=== PATIENT | female | born 2000 | race African-American/Black ===

== ENCOUNTER 2021-02-23 10:10 | Emergency (ER) | payer OTHER ==
--- NOTE | 2021-02-23 11:08 | ED Physician Documentation ---
History of Present Illness - Stated complaint Stated Complaint: FEMALE - Chief complaint Chief Complaint: General - History obtained from History obtained from: Patient - Additonal information Additional information: Patient comes emergency department chief complaint of early period and low abdominal cramping. Patient states that she had her initial menses this month on February 04 and this lasted about a week, as is customary for the patient. Patient states that today, she began having vaginal bleeding again, and that it is like a regular period. Patient states that she has not had any fevers or chills. No nausea or vomiting. She states she does not think that she could be , but has not taken a test. She does not currently use any control. Patient denies any medical problems. She states she is otherwise healthy. She does note that she has been traveling recently, including not getting enough sleep and being under stress. No dysuria. No vaginal discharge. No other complaints at this time. Review of Systems Ten Systems: 10 systems reviewed and negative Constitutional: reports: Reviewed and negative Eyes: reports: Reviewed and negative Ears: reports: Reviewed and negative Nose: reports: Reviewed and negative Throat: reports: Reviewed and negative Cardiac: reports: Reviewed and negative Respiratory: reports: Reviewed and negative GI: reports: Reviewed and negative : reports: Vaginal bleeding, Irregular menses Skin: reports: Reviewed and negative Musculoskeletal: reports: Reviewed and negative Neurologic: reports: Reviewed and negative Psychiatric: reports: Reviewed and negative Endocrine: reports: Reviewed and negative Immunocompromised: reports: Reviewed and negative PD PAST MEDICAL HISTORY - Allergies Allergies/Adverse Reactions: Allergies Allergy/AdvReac Type Severity Reaction Status Date / Time No Known Drug Allergies Allergy Verified 02/23/21 10:27 PD ED PE NORMAL - Vitals Vital signs reviewed: Yes - General General: Alert and oriented X 3, No acute distress, Well developed/nourished - HEENT HEENT: Atraumatic, PERRL, EOMI, Moist mucous membranes - Neck Neck: Supple, no meningeal sign - Cardiac Cardiac: RRR, No murmur, Strong equal pulses - Respiratory Respiratory: No respiratory distress, Clear bilaterally - Abdomen Abdomen: Soft, Non tender, Non distended - Derm Derm: Normal color, Warm and dry, No rash - Extremities Extremities: No deformity, No edema - Neuro Neuro: Alert and oriented X 3, band tier 2-12 intact, Normal speech - Psych Psych: Normal mood, Normal affect Results - Vitals Vitals: Oxygen O2 Source Room air - Labs Labs: Laboratory Tests 02/23/21 11:26 Urine HCG, Qual NEGATIVE PD MEDICAL DECISION MAKING - ED course Complexity details: reviewed results, re-evaluated patient, considered differential, d/w patient ED course: Patient was worked up with a test, which not surprisingly, was negative. We have discussed the need for TOOL GRINDER OPERATOR EXTERNAL follow-up if irregular periods become ongoing, but that this will likely resolve on its own. Departure - Departure Disposition: 01 Home, Self Care Clinical Impression: Dysfunctional uterine bleeding Condition: Stable Instructions: ED Bleed Irregular Vaginal Comments: At this point in time, a single irregular period is not necessarily worrisome, as this is something that will happen to most women at least a few times during their menstrual years. You do not have other symptoms to raise concern for more serious process going on at this time. Usually, a menstrual cycle that is shorter or longer than normal is due to an imbalance in the many female hormones that contribute to the menstrual cycle. Generally, this hormone balance will correct itself After a cycle or 2 and he will go back to normal periods. If you continue to have irregular menstrual cycles for more than a few cycles, you should follow-up with your [employer] rep to discuss whether further testing or treatment should be done. Forms: Activity restrictions Discharge Date/Time: 02/23/21 11:35
[2021-02-23 11:35] VITALS: BP 112/62
[2021-02-23 11:52] LABS: HCG UR QUAL NEGATIVE
== END 2021-02-23 11:35 | disposition home or self-care (01) ==
LOC: ED 10:10
DX: N93.8 Other specified abnormal uterine and vaginal bleeding (principal)
CPT/HCPCS: 81025; 99282; 99283

== ENCOUNTER 2021-03-07 23:11 | Emergency (ER) | payer OTHER ==
[2021-03-07 23:17] VITALS: BP 118/65
[2021-03-07] MEDS ORDERED: BACITRACIN ZINC OINT 1 PACKET TOP STA (23:24)
--- NOTE | 2021-03-08 00:34 | ED Physician Documentation ---
History of Present Illness - Stated complaint Stated Complaint: FEMALE - Chief complaint Chief Complaint: General - History obtained from History obtained from: Patient - Additonal information Additional information: 20-year-old woman presents with concerns that she may have a vaginal tear, having experienced some discomfort over the past couple of days. Denies dysuria, hematuria, abnormal discharge or increased frequency. She is sexually active with one partner and always uses condoms. Review of Systems : reports: Other (vaginal irritation). denies: Dysuria, Frequency, Hesitancy, Hematuria PD PAST MEDICAL HISTORY - Past Medical History Past Medical History: No - Past Surgical History Past Surgical History: Yes HEENT: Other - Present Medications Home Medications: Ambulatory Orders Medication Instructions Recorded Confirmed Ibuprofen [Motrin] 1 tab PO Q8HR PRN 03/07/21 03/07/21 - Allergies Allergies/Adverse Reactions: Allergies Allergy/AdvReac Type Severity Reaction Status Date / Time No Known Drug Allergies Allergy Verified 03/07/21 23:13 - Social History Does the pt smoke?: Yes Smoking Status: Current every day smoker Does the pt drink ETOH?: No Does the pt have substance abuse?: No - Immunizations Immunizations are current?: Yes - POLST Patient has POLST: No PD ED PE NORMAL - Vitals Vital signs reviewed: Yes - General General: Alert and oriented X 3, No acute distress, Well developed/nourished - HEENT HEENT: Atraumatic, PERRL, EOMI - Female Female : Trouble Locator Test Desk present (CARYN perkins), Other (no abnormal discharge. normal ext female genitalia. some irritation at posterior fourchette without clear laceration or abrasion. ) - Derm Derm: Normal color, Warm and dry Results - Vitals Vitals: Vital Signs - 24 hr 03/07/21 23:13 Temperature 36.5 C Heart Rate 87 Respiratory 16 Rate Blood Pressure 118/65 O2 Saturation 100 Oxygen O2 Source Room air - Labs Labs: Microbiology 03/08/21 00:17 Wet Prep - Final Vaginal Laboratory Tests 03/08/21 00:17 Chlam trachomat DNA PCR NEGATIVE N.gonorrhoeae DNA (PCR) NEGATIVE T. vaginalis (PCR) NEGATIVE PD MEDICAL DECISION MAKING - ED course ED course: 20-year-old woman presents with vaginal irritation without apparent yeast infection on exam or on wet mount. Negative for STIs. She is not experiencing any urinary symptoms consistent with UTI therefore we are holding off on urinalysis at this time. Bacitracin applied. Advised her to sterile lubricating jelly to the area and follow-up with her BARREL REPAIRER. Return precautions given. Departure - Departure Disposition: 01 Home, Self Care Clinical Impression: Vaginal irritation Condition: Good Follow-Up: Kalyn Canas MD [Provider Admit Priv/Credential] - Comments: You are seen in the emergency department for evaluation of vaginal irritation. You do not appear to have a yeast infection. Gonorrhea and Chlamydia sexually transmitted infection tests were sent which you can view the results of on your patient health portal by making an account on the [facility] website. You should follow-up with BARREL REPAIRER this week. Return to the emergency department if you have any new or worsening symptoms or other concerns. Discharge Date/Time: 03/08/21 00:35
[2021-03-08 02:14] LABS: CHLAMYDIA TRACHOMATIS DNA NEGATIVE (NEGATIVE); NEISSERIA GONORRHOEAE DNA NEGATIVE (NEGATIVE); TRICHOMONAS VAGINALIS DNA NEGATIVE (NEGATIVE)
== END 2021-03-08 00:35 | disposition home or self-care (01) ==
LOC: ED 23:11
DX: N89.9 Noninflammatory disorder of vagina, unspecified (principal); R10.2 Pelvic and perineal pain; F17.200 Nicotine dependence, unspecified, uncomplicated
CPT/HCPCS: 87210; 87491; 87591; 87661; 99282; 99283; A9270

== ENCOUNTER 2022-01-18 08:00 | Outpatient (CLI) | payer OTHER ==
[2022-01-20 08:10] LABS: VARICELLA-ZOSTER AB IGG 298 index (Immune >165)
[2022-01-22 13:10] LABS: VARICELLA-ZOSTER AB IGM <0.91 index (0.00-0.90)
== END 2022-01-18 23:59 | disposition home or self-care (01) ==
LOC: LAB.N 08:00
PROVIDERS: ATTEND Physician Assistant Medical
DX: B00.1 Herpesviral vesicular dermatitis (principal)
CPT/HCPCS: 81599; 86694; 86695; 86696; 86787; 87255; 87529